=== PATIENT | female | born 1970 | race Caucasian/White ===

== ENCOUNTER → 2017-06-01 | Outpatient (CLI) | payer BC ==
[~2017-06-01] MED LIST: ALBUAER2 INH; ATOR-22 PO; ATV5X PO; HYDR-5688 PO; LISI-1116 PO; LSX20 PO; MULT-506 PO; OMEG10007 PO; PANT40TA PO; PRED20TA PO
== END | disposition home or self-care (01) ==
LOC: C.LAB 07:22
PROVIDERS: ATTEND Nutritionist
DX: R53.83 Other fatigue (principal)

== ENCOUNTER → 2017-09-21 | Outpatient (CLI) | payer BC | END | disposition home or self-care (01) | LOC: C.LABBC 15:30 | PROVIDERS: ATTEND Physician Assistant | DX: R39.9 Unspecified symptoms and signs involving the genitourinary system (principal) ==

== ENCOUNTER 2017-09-26 20:12 | Emergency (ER) | payer BC ==
[~2017-09-26] VITALS: Ht 149.9 cm; Wt 75.4 kg
[~2017-09-26 20:12] MED LIST changes: -HYDR-5688 PO; -PRED20TA PO
[2017-09-26 20:23] VITALS: TEMP 36.7; Ht 149.9 cm; Wt 75.4 kg
--- NOTE | 2017-09-26 21:22 | DIAGNOSTIC IMAGING REPORT ---
C-SPINE ROUTINE 4 OR 5 VIEWS HISTORY: Pain. Neuropathy. right neck, shoulder pain COMPARISON: None. FINDINGS: The cervical spine is visualized from C1 through the superior endplate of T1. There is no fracture. No subluxation. Disc spaces are preserved. Prevertebral soft tissues and the atlantodens interval are intact. IMPRESSION: No fracture or subluxation within the cervical spine. Normal study The above report was generated using voice recognition software. It may contain grammatical, syntax or spelling errors. Electronically signed by: Derrek Raymond M.D. 09/26/2017 9:20 PM Dictated Date/Time: 09/26/2017 9:20 PM
--- NOTE | 2017-09-26 21:23 | DIAGNOSTIC IMAGING REPORT ---
R SHOULDER MIN 2 VIEWS ROUTINE CLINICAL HISTORY: right neck, shoulder pain pain COMPARISON: None. DISCUSSION: Minimal degenerative change acromioclavicular joint. Minimal Hill-Sachs deformity posterior lateral aspect humeral head. No acute bony abnormality. There is no evidence for soft tissue swelling. IMPRESSION: No acute bony abnormality. Minimal degenerative change. The above report was generated using voice recognition software. It may contain grammatical, syntax or spelling errors. Electronically signed by: Derrek Raymond M.D. 09/26/2017 9:21 PM Dictated Date/Time: 09/26/2017 9:20 PM
[2017-09-26] MEDS ORDERED: NORCO 5/325MG HOME PACK PO ONE (22:00)
[2017-09-26] MEDS ORDERED: HYDR-5688 PO (22:02)
[2017-09-26] MEDS ORDERED: PRED20TA PO (22:02)
--- NOTE | 2017-09-26 22:04 | EMERGENCY ROOM VISIT NOTE ---
History First contact with patient: 20:27 Chief Complaint: BACK PAIN Stated Complaint: BACK/ARM PAIN, POSSIBLE FLUID BUILD UP History of Present Illness The patient is a 47 year old female who presents to the Emergency Room with complaints of pain in her right neck and shoulder radiating down the arm. The patient reports that for the past 2 days, she has had a pain radiating from her right neck down the arm and shoulder. She states the pain has been gradually worsening and she has a hard time sitting still. The pain is constant and nothing makes it better or worse. She has tried Tylenol, ibuprofen, ice and heat without improvement. Patient does state she feels slightly bloated as well in her pants have been tight recently. She took Lasix but this did not help. She denies chest pain or shortness of breath. She rates the discomfort an 8/10. She states that her arm feels slightly heavy at times but denies any numbness or weakness. She denies any history of neck problems. She denies any trauma. Review of Systems A complete 10 point review of systems was reviewed with the patient with pertinent positives and negatives as per history of present illness. All else were negative. Past Medical/Surgical History Medical Problems: (1) Hypertension Social History Smoking Status: Never Smoker Housing Status: lives with family Current/Historical Medications Scheduled Atorvastatin (Lipitor), 40 MG PO DAILY Fish Oil ([place]-3), 1 CAP PO DAILY Lisinopril (Lisinopril), 2.5 MG PO QD@16 Multivitamin (Multivitamin), 1 TAB PO DAILY Pantoprazole (Protonix), 40 MG PO DAILY Prednisone (Prednisone), 0 PO DAILY Scheduled PRN Albuterol (Ventolin), 2 PUFFS INH QID PRN for Wheezing Furosemide (Furosemide), 1 TAB PO DAILY PRN for edema Hydrocodone/Acetaminophen 5MG/325MG (Mcintosh 5MG/325MG), 1-2 TABLET PO Q4H PRN for Pain Lorazepam (Lorazepam), 1 TAB PO TID PRN for Anxiety Physical Exam Vital Signs Date Time Temp Pulse Resp B/P (MAP) Pulse Ox O2 Delivery O2 Flow Rate FiO2 09/26/17 22:27 78 18 171/132 100 09/26/17 20:23 36.7 85 18 175/98 97 Room Air Physical Exam VITALS: Vitals are noted on the nurse's note and reviewed by myself. GENERAL: This is a 47-year-old female, in no acute distress, nondiaphoretic, well-developed well-nourished. SKIN: The skin was without rashes. NECK: Supple without nuchal rigidity. Cervical spine is nontender. HEART: Regular rate and rhythm without murmurs gallops or rubs. LUNGS: Clear to auscultation bilaterally without wheezes, rales or rhonchi. No retractions or accessory muscle use. MUSCULOSKELETAL: There is no tenderness to palpation of the cervical spine. There is tenderness to the right cervical and thoracic paraspinous muscles as well as the distribution of the trapezius muscle. Full range of motion of bilateral upper extremities with strength 5/5. NEURO: Patient was alert and oriented to person place and time. Distal sensation intact. Medical Decision & Procedures ER Provider Diagnostic Interpretation: R SHOULDER MIN 2 VIEWS ROUTINE CLINICAL HISTORY: right neck, shoulder pain pain COMPARISON: None. DISCUSSION: Minimal degenerative change acromioclavicular joint. Minimal Hill-Sachs deformity posterior lateral aspect humeral head. No acute bony abnormality. There is no evidence for soft tissue swelling. IMPRESSION: No acute bony abnormality. Minimal degenerative change. C-SPINE ROUTINE 4 OR 5 VIEWS HISTORY: Pain. Neuropathy. right neck, shoulder pain COMPARISON: None. FINDINGS: The cervical spine is visualized from C1 through the superior endplate of T1. There is no fracture. No subluxation. Disc spaces are preserved. Prevertebral soft tissues and the atlantodens interval are intact. IMPRESSION: No fracture or subluxation within the cervical spine. Normal study Medications Administered Medications (Trade) Dose Ordered Sig/[facility] Route Start Time Stop Time Status Last Admin Dose Admin Acetaminophen/ Hydrocodone Bitart (Mcintosh 5/325mg Home Pack) 1 homepack UD ONCE PO 09/26/17 22:00 09/26/17 22:01 DC 09/26/17 22:23 1 HOMEPACK Medical Decision Differential diagnosis includes cervical radiculopathy, tendinitis, muscle spasm , ligamentous injury, herniated disc, among others. The patient was evaluated as above. X-rays of the right shoulder and cervical spine were obtained and read by radiology with no acute findings. Patient's presentation is most consistent with a cervical radiculopathy. She will be placed on a course of prednisone and was given a short course of Mcintosh for pain. She was advised to follow-up with her PCP this week for a recheck. Conservative measures were discussed. She verbalized understanding of my assessment and treatment plan and was discharged home in good condition. [facility] Drug Monitoring Program Search Results: patient reviewed within database, no issues identified Medication Reconcilliation Current Medication List: was personally reviewed by me Blood Pressure Screening Patient's blood pressure: Elevated blood pressure Blood pressure disposition: Elevated BP felt to be situational, Referred to PCP Impression Primary Impression: Cervical radiculopathy Departure Information Dispostion Home / Self-Care Condition GOOD Prescriptions Prednisone (Prednisone) 20 Mg Tab 0 PO DAILY, #18 TAB 3 DAILY FOR 3 DAYS, THEN 2 DAILY FOR 3 DAYS, THEN 1 DAILY FOR 3 DAYS. Prov: Marleni Lange PA-C 09/26/17 Hydrocodone/Acetaminophen 5MG/325MG (Mcintosh 5MG/325MG) Tab 1-2 TABLET PO Q4H Y for Pain, #15 TAB For Initial Treatment Prov: Marleni Lange PA-C 09/26/17 Referrals No Doctor, Assigned (PCP) Patient Instructions My [facility] Additional Instructions You have been treated in the Emergency Department for Back/neck pain. You have been prescribed Mcintosh to be used for pain control. This is a narcotic medication. You cannot drive or consume alcohol while on this medicine. This medicine should only be used for pain that cannot be controlled with over-the- counter pain medicines. Prednisone as prescribed. For pain control, you can use the following [id number] medicines (if >12 yo): - Regular strength (325mg/tab) Tylenol (acetaminophen) 2 tabs every 4-6 hours as needed. Do not exceed 12 tablets in a 24 hour period. Avoid taking more than 4 grams (4000 mg) of Tylenol per day. This includes any other sources of acetaminophen you may take on a regular basis. - Regular strength (200 mg/tab) Advil (ibuprofen) 1-2 tabs every 4-6 hours as needed. Do not exceed a dose of 3200 mg per day. If this is an acute injury, ice can be applied to the area of pain for the first 3 days to help decrease pain and inflammation. After the first 3 days, a heating pad can be used over the area for continued soothing relief. You should schedule a follow-up appointment in 2-3 days with your Primary Care Provider for further evaluation and treatment of your back pain. Return to the Emergency Department if your current symptoms worsen despite treatment course outlined above, or if you develop any of the following symptoms : intractable pain despite aforementioned treatment course, increased weakness, new onset numbness or tingling, or development of a fever.
[2017-09-26 22:27] VITALS: BP 171/132; PULSE 78; O2SAT 100
== END 2017-09-26 22:27 | disposition home or self-care (01) ==
LOC: C.EDB 20:13 → C.EDD 22:27
DX: I10 Essential (primary) hypertension (principal); M54.12 Radiculopathy, cervical region